=== PATIENT | female | born 1950 | race Two or more races ===

== ENCOUNTER 2019-07-02 13:38 | Inpatient (IN) | payer MEDICAID, OTHER ==
[~2019-07-02] VITALS: Ht 154.9 cm; Wt 65.8 kg
[2019-07-02 14:39] LABS: Basophils # (auto) 0.1 uL; Basophils % (auto) 0.7 % (0.0-2.0); Eosinophils # (auto) 0.3 uL; Eosinophils % (auto) 2.9 % (0.0-7.0); Lymphocytes # (auto) 1.7 uL; Lymphocytes % (auto) 19.2 % (10.0-50.0); Monocytes # (auto) 0.6 uL; Red Cell Distribution Width 14.3 % (11.8-14.3)
[2019-07-02 14:41] LABS: Hematocrit 39.7 % (36.0-46.0); Mean Corpuscular Hemoglobin 26.6 pg (28.0-32.0); Mean Corpuscular Hgb Conc. 32.8 g/dL (32.0-36.0); Mean Corpuscular Volume 81.3 fL (80.0-100.0); Monocytes % (auto) 6.7 % (0.0-12.0); Neutrophils # (auto) 6.4 uL; Neutrophils % (auto) 70.5 % (37.0-80.0); Platelet Count (auto) 262 10^3/uL (140-450); Red Blood Cells 4.88 10^6/uL (4.0-5.20)
[2019-07-02 14:48] LABS: Alanine Aminotransferase 24 U/L (13-56); Albumin 3.6 g/dL (3.4-5.0); Anion Gap 5 (5-15); Aspartate Aminotransferase 22 U/L (15-37); BUN/Creatinine Ratio 26.4; Blood Urea Nitrogen 14 mg/dL (7-18); Calcium 8.4 mg/dL (8.5-10.1); Carbon Dioxide 28 mmol/L (21-32); Chloride 91 mmol/L (98-107); GFR African American 147 mL/min; GFR Non-African American 121 mL/min; Glucose 99 mg/dL (74-106); Magnesium 1.7 mg/dL (1.6-2.6); Potassium 3.7 mmol/L (3.5-5.1); Sodium 124 mmol/L (136-145)
[2019-07-02 14:53] LABS: Alkaline Phosphatase 94 U/L (45-117); Bilirubin, Total 0.6 mg/dL (0.2-1.0); Total Protein 7.5 g/dL (6.4-8.2)
[2019-07-02] MEDS ORDERED: hydrALAZINE HCL 20 MG/ML VL IV PRN (19:15)
[2019-07-02] MEDS ORDERED: NITROGLYCERIN 0.4 MG SL TAB SL PRN (19:15)
[2019-07-02] MEDS ORDERED: MORPHINE SULF INJ 2 MG/ML SYRINGE 1ML IV PRN ×2 (19:15→19:30)
[2019-07-02] MEDS ORDERED: amLODIPine BESYLATE 5 MG TAB PO ONE (19:15)
[2019-07-02] MEDS ORDERED: ONDANSETRON HCL 4 MG/2 ML VIAL IV PRN (19:30)
[2019-07-02] MEDS ORDERED: ACETAMINOPHEN 500 MG TAB PO PRN (19:30)
[2019-07-02 21:10] VITALS: BP 141/94
[2019-07-02] MEDS: LOSARTAN POTASSIUM 25 MG TAB PO SCH (21:46)
[2019-07-02 22:00] VITALS: BP 141/94
[2019-07-02] MEDS: HYDROcodone-ACET 5/325MG TAB PO PRN (23:32)
[2019-07-03] MEDS ORDERED: HYDR-4296 PO (01:19)
[2019-07-03] MEDS ORDERED: LEV100T PO ×2 (01:19→10:50)
[2019-07-03] MEDS ORDERED: LOSA-69 PO (01:19)
[2019-07-03] MEDS ORDERED: ASPI-404 PO (01:19)
[2019-07-03 05:00] VITALS: BP 110/72
[2019-07-03] MEDS: HYDROcodone-ACET 5/325MG TAB PO PRN (05:33)
[2019-07-03 09:00] VITALS: BP 117/69
[2019-07-03] MEDS ORDERED: amLODIPine BESYLATE 5 MG TAB PO SCH (10:00)
[2019-07-03] MEDS: LOSARTAN POTASSIUM 25 MG TAB PO SCH ×2 (10:41→10:52)
[2019-07-03] MEDS: FAMOTIDINE 20 MG TAB PO SCH ×2 (10:42→10:52)
[2019-07-03] MEDS ORDERED: LEVOTHYROXINE SODIUM 100 MCG TAB PO ONE (11:00)
[2019-07-03 11:16] LABS: Basophils # (auto) 0.1 uL; Basophils % (auto) 0.8 % (0.0-2.0); Eosinophils # (auto) 0.2 uL; Eosinophils % (auto) 2.5 % (0.0-7.0); Hematocrit 43.2 % (36.0-46.0); Hemoglobin 14.2 g/dL (12.2-16.2); Lymphocytes # (auto) 1.1 uL; Lymphocytes % (auto) 17.4 % (10.0-50.0); Monocytes # (auto) 0.5 uL; Monocytes % (auto) 8.1 % (0.0-12.0); Neutrophils # (auto) 4.6 uL; Neutrophils % (auto) 71.2 % (37.0-80.0); Nucleated Red Blood Cells % 0.2 %; Platelet Count (auto) 268 10^3/uL (140-450); Red Blood Cells 5.26 10^6/uL (4.0-5.20); Red Cell Distribution Width 14.7 % (11.8-14.3); White Blood Cell 6.5 10^3/uL (4.4-10.8)
[2019-07-03 11:40] LABS: BUN/Creatinine Ratio 22.9; Calcium 8.9 mg/dL (8.5-10.1); Potassium 3.4 mmol/L (3.5-5.1)
[2019-07-03] MEDS ORDERED: AML5T PO (12:32)
[2019-07-03] MEDS ORDERED: HYDR50TA15 PO (12:35)
[2019-07-03] MEDS ORDERED: POTASSIUM CHL 20 Meq TABLET PO ONE (12:45)
[2019-07-03 13:00] VITALS: BP 106/64
== END 2019-07-03 16:00 | disposition home or self-care (01) | DRG 199 ==
LOC: ER 13:38 → TELE 13:39 → TELE-EAST 20:38
PROVIDERS: ADMIT Nurse Practitioner Acute Care; ATTEND Internal Medicine Nephrology
DX: I10 Essential (primary) hypertension (principal); E87.1 Hypo-osmolality and hyponatremia; E03.9 Hypothyroidism, unspecified; Z88.0 Allergy status to penicillin; Z90.49 Acquired absence of other specified parts of digestive tract; Z79.899 Other long term (current) drug therapy; Z79.82 Long term (current) use of aspirin
CPT/HCPCS: 36415; 71046; 80048; 80053; 83735; 83880; 83930; 84439; 84443; 84484; 85025; G0378